=== PATIENT | female | born 1935 ===

== ENCOUNTER 2018-03-16 11:08 | Inpatient (IN) | payer OTHER ==
[~2018-03-16] VITALS: Ht 165.1 cm; Wt 74.8 kg
[2018-03-16] MEDS ORDERED: ARNICARE (11:36)
[2018-03-16] MEDS ORDERED: ASPIR 8181 MG (11:36)
[2018-03-16] MEDS ORDERED: FORTAMET1000 MG (11:36)
[2018-03-16] MEDS ORDERED: AZOR 5-20 MG T1 EACH (11:37)
[2018-03-16] MEDS ORDERED: ATORVASTATIN CA20 MG (11:37)
[2018-03-16] MEDS ORDERED: GLIPIZIDE5 MG (11:37)
[2018-03-16] MEDS ORDERED: GLIPIZIDE ER10 MG (11:37)
== END 2018-04-11 17:34 | DRG 308 ==
LOC: ER 11:08 → MEDI 21:10
PROC: 4A033R1 Measurement of Arterial Saturation, Peripheral, Percutaneous Approach (ICD-10-PCS; principal; 2018-03-16)
PROC: B246ZZZ Ultrasonography of Right and Left Heart (ICD-10-PCS; 2018-03-16)
PROC: 4A12X4Z Monitoring of Cardiac Electrical Activity, External Approach (ICD-10-PCS; 2018-03-17)
PROC: BB24ZZZ Computerized Tomography (CT Scan) of Bilateral Lungs (ICD-10-PCS; 2018-04-01)
PROC: 3E0F7GC Introduction of Other Therapeutic Substance into Respiratory Tract, Via Natural or Artificial Opening (ICD-10-PCS; 2018-04-02)
DX: I48.0 Paroxysmal atrial fibrillation (principal); I50.33 Acute on chronic diastolic (congestive) heart failure; J90 Pleural effusion, not elsewhere classified; N17.8 Other acute kidney failure; J45.21 Mild intermittent asthma with (acute) exacerbation; R09.02 Hypoxemia; E11.65 Type 2 diabetes mellitus with hyperglycemia; I34.0 Nonrheumatic mitral (valve) insufficiency; I27.29 Other secondary pulmonary hypertension; I11.0 Hypertensive heart disease with heart failure; E66.8 Other obesity; E78.4 Other hyperlipidemia; D69.59 Other secondary thrombocytopenia

== ENCOUNTER 2018-04-15 10:43 | Inpatient (IN) | payer OTHER ==
[~2018-04-15] VITALS: Ht 165.1 cm; Wt 136.1 kg
[~2018-04-15 10:43] MED LIST: ARNICARE; ASPIR 8181 MG; ATORVASTATIN CA20 MG; AZOR 5-20 MG T1 EACH; FORTAMET1000 MG; GLIPIZIDE ER10 MG; GLIPIZIDE5 MG
== END 2018-04-25 19:49 | DRG 308 ==
LOC: ER 10:43 → MEDI 19:38 → SURG 04-21 17:45 → MEDI 04-21 17:58
PROC: 4A033R1 Measurement of Arterial Saturation, Peripheral, Percutaneous Approach (ICD-10-PCS; principal; 2018-04-15)
PROC: 3E0F7GC Introduction of Other Therapeutic Substance into Respiratory Tract, Via Natural or Artificial Opening (ICD-10-PCS; 2018-04-15)
PROC: 4A12X4Z Monitoring of Cardiac Electrical Activity, External Approach (ICD-10-PCS; 2018-04-15)
DX: I48.0 Paroxysmal atrial fibrillation (principal); I50.33 Acute on chronic diastolic (congestive) heart failure; J90 Pleural effusion, not elsewhere classified; J45.21 Mild intermittent asthma with (acute) exacerbation; N17.8 Other acute kidney failure; I11.0 Hypertensive heart disease with heart failure; R09.02 Hypoxemia; E11.65 Type 2 diabetes mellitus with hyperglycemia; E78.4 Other hyperlipidemia; E66.8 Other obesity; I34.0 Nonrheumatic mitral (valve) insufficiency; I27.29 Other secondary pulmonary hypertension; D69.59 Other secondary thrombocytopenia